=== PATIENT | male | born 1985 | race Caucasian/White ===

== ENCOUNTER 2017-10-02 18:47 | Emergency (ER) | payer MEDICAID ==
--- NOTE | 2017-10-03 00:04 | ER ---
HPI: A 32-year-old male who comes in with complaints of right-sided chest wall pain. He states he has had these symptoms for about a year. He did have 2 different injuries approximately a year ago. The first time he slipped and fell again, something that injured the right chest wall. He did not come in for evaluation and just gave it some time and it seemed like it was slowly improving. Then, he was involved in a wrestling competition with some kids and he re-injured the same area. He still did not come in for evaluation. 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 One week later, he was in some pain, but he was able to get the job done. 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 All of this is involving a lot of physical activity. The patient states that lately he feels it has gotten a little bit worse, nothing significant, but he is tired of the symptoms and wants to know what happened. He takes ibuprofen occasionally for pain. He has not had any problems with shortness of breath, coughing, or wheezing and he has not had any recent injuries. OBJECTIVE: GENERAL APPEARANCE: The patient is awake and alert. No obvious distress. VITAL SIGNS: Reviewed. A low-grade temp of 99.7. He is normotensive. Respirations are 16, pulse 65. Physical exam, examining the right chest wall reveals area of concern is the lateral lower chest wall. Skin is intact. There is no swelling or discoloration. There is vague discomfort with palpation in this area today. LUNGS: Clear. The patient is able to take a deep breath with minimal discomfort. CARDIAC: Heart sounds distinct. ABDOMEN: Soft. There is no tenderness involving the upper right quadrant with palpation. Bowel sounds are present. LAB AND X-RAY: Right rib films with PA chest were obtained. I can see 2 old rib fractures that have healed with good alignment. I do not see any other abnormalities. DIAGNOSIS: Chest wall pain with history of rib fractures approximately 1 year ago that have healed. TREATMENT PLAN: I advised the patient that his active lifestyle is what causing ongoing pain, this is involving the chest wall muscles and possibly even cartilage damage to some degree. I advised patient to continue with activity as tolerated. Use ibuprofen for pain as needed and followup is p.r.n. CRS/MODL /[id number]
--- NOTE | 2017-10-03 07:36 | CR ---
DATE OF SERVICE: 10/02/2017 CLINICAL DATA: Chest wall pain. History of 2 injuries 1 year ago. PA CHEST AND RIGHT RIBS: The heart size is normal. The lungs are clear. No pneumothorax. No pleural effusions. No areas of consolidation. No rib abnormalities. IMPRESSION: Negative exam. [id number] MTDD
== END 2017-10-02 19:59 | disposition home or self-care (01) ==
LOC: LB.ED 18:47
DX: R07.89 Other chest pain (principal)
CPT/HCPCS: 71101-RT; 99284

== ENCOUNTER 2022-07-02 17:51 | Emergency (ER) | payer MEDICAID ==
[2022-07-02] MEDS ORDERED: Lidocaine 1% with EPINEPHrine 1:100,000 50 ML MDV INFILT ONE (18:27)
[2022-07-02] MEDS ORDERED: Diphtheria/Tetanus Toxoids,Adult (Td) 0.5 ML SDV IM ONE (18:27)
[2022-07-02] MEDS ORDERED: Bacitracin Oint 1 GM U/D Packet TOP ONE (18:27)
[2022-07-02] MEDS ORDERED: Amoxicillin 500 MG Cap ONE (18:30)
[2022-07-02] MEDS ORDERED: Diphtheria,Pertussis(Acell),Tetanus Vaccine 0.5 ML Syringe IM ONE (18:40)
== END 2022-07-02 18:55 | disposition home or self-care (01) ==
LOC: LB.ED 17:51
DX: S61.431A Puncture wound without foreign body of right hand, initial encounter (principal); Z23 Encounter for immunization; W01.190A Fall on same level from slipping, tripping and stumbling with subsequent striking against furniture, initial encounter
CPT/HCPCS: 90471; 90715; 99282; 99283-25; A9270-GY